=== PATIENT | male | born 1985 | race Caucasian/White ===

== ENCOUNTER 2022-03-02 00:01 | Emergency (ER) | payer SELFPAY ==
[2022-03-02 01:08] LABS: Absolute Lymphocytes (CBC) 1.9 K/uL (0.7-4.9); Hematocrit 49.6 % (39.6-49.0); Lymphocytes % 23.8 % (15.3-44.8); MCV 92.3 fL (80-100); MPV 7.1 fL (7.6-11.3); RBC Red Blood Cell Count 5.37 M/uL (4.33-5.43)
[2022-03-02 01:12] LABS: Protime INR 0.93
[2022-03-02 01:23] LABS: ALT/SGPT 33 U/L (12-78); AST/SGOT 22 U/L (15-37); Albumin 3.9 g/dL (3.4-5.0); Alkaline Phosphatase 107 U/L (45-117); BUN Blood Urea Nitrogen 8 mg/dL (7-18); Bicarbonate 27 mmol/L (21-32); Bilirubin Direct 0.1 mg/dL (0-0.2); Bilirubin Total 0.3 mg/dL (0.2-1.0); Glomerular Filtration Rate 118 ml/min (=/>90); Glucose Level 106 mg/dL (74-106); Potassium 3.4 mmol/L (3.5-5.1); Protein, Total 7.2 g/dL (6.4-8.2); Sodium Level 142 mmol/L (136-145)
--- NOTE | 2022-03-02 02:10 | ER ---
Nurse's Notes [facility] Name: Parag Bonds Age: 37 yrs Sex: Male : 1985 Arrival Date: 03/02/2022 Time: 00:05 Bed 19 Private MD: Diagnosis: Alcohol use, unspecified with intoxication;Headache Presentation: 03/02 00:05 Chief complaint: EMS states: pt was in custody for public intoxication and had tw5 complaints of headache and requested to be transported by EMS to the hospital for evaluation. pt denies headache at this time. Coronavirus screen: Client denies travel out of the [place] in the last 14 days. At this time, the client does not indicate any symptoms associated with coronavirus-19. Ebola Screen: No symptoms or risks identified at this time. Initial Sepsis Screen: Does the patient meet any 2 criteria? No. Patient's initial sepsis screen is negative. Does the patient have a suspected source of infection? No. Patient's initial sepsis screen is negative. Risk Assessment: Do you want to hurt yourself or someone else? Patient reports no desire to harm self or others. Onset of symptoms was March 02, 2022. 00:05 Method Of Arrival: EMS: [facility] tw5 00:05 Acuity: MIKAEL 3 tw5 Triage Assessment: 00:05 General: Appears in no apparent distress. comfortable, Behavior is calm, cooperative. tw5 Pain: Denies pain. EENT: No deficits noted. No signs and/or symptoms were reported regarding the EENT system. Neuro: No deficits noted. Level of Consciousness is awake, alert, obeys commands, Oriented to person, place. Cardiovascular: No deficits noted. Denies chest pain, shortness of breath, Capillary refill < 3 seconds Clubbing of nail beds is absent JVD is absent Patient's skin is warm and dry. Respiratory: No deficits noted. Airway is patent Trachea midline Respiratory effort is even, unlabored, Respiratory pattern is regular, symmetrical, Breath sounds are clear bilaterally. GI: No deficits noted. No signs and/or symptoms were reported involving the gastrointestinal system. Abdomen is flat, non-distended, Abd is soft and non tender X 4 quads. : No deficits noted. No signs and/or symptoms were reported regarding the genitourinary system. Derm: No deficits noted. No signs and/or symptoms reported regarding the dermatologic system. Skin is intact, is healthy with good turgor, Skin is dry, Skin is normal, Skin temperature is warm. Musculoskeletal: No deficits noted. No signs and/or symptoms reported regarding the musculoskeletal system. Circulation, motion, and sensation intact. Range of motion: intact in all extremities. Historical: - Allergies: 00:14 Unable to obtain; tw5 - Home Meds: 00:14 Unable to obtain [Active]; tw5 - PMHx: 00:14 Unable to Obtain; tw5 - PSHx: 00:14 Unable to Obtain; tw5 - Immunization history:: Client reports having NOT received the Covid vaccine. - Social history:: Smoking status: Patient reports the use of cigarette tobacco products, Patient uses alcohol. Screenin:09 Abuse screen: Denies threats or abuse. Denies injuries from another. Nutritional tw5 screening: No deficits noted. Tuberculosis screening: No symptoms or risk factors identified. Fall Risk None identified. Assessment: 00:09 General: see triage assessment . tw5 01:31 Reassessment: Patient appears in no apparent distress at this time. No changes from tw5 previously documented assessment. Patient and/or family updated on plan of care and expected duration. Pain level reassessed. Patient is alert, oriented x 3, equal unlabored respirations, skin warm/dry/pink. 03:37 Reassessment: Patient appears in no apparent distress at this time. No changes from lg3 previously documented assessment. pt quietly resting at this time. Vital Signs: 00:05 BP 131 / 75; Pulse 88; Resp 16; Temp 98.2(O); Pulse Ox 98% on R/A; Weight 81.65 kg (R); tw5 Height 6 ft. (182.88 cm) (R); Pain 0/10; 01:31 BP 103 / 62; Pulse 74; Resp 17 S; Pulse Ox 96% on R/A; tw5 03:40 BP 110 / 64; Pulse 71; Resp 16; Pulse Ox 97% on R/A; lg3 00:05 Body Mass Index 24.41 (81.65 kg, 182.88 cm) tw5 ED Course: 00:05 Patient arrived in ED. mw2 00:05 Shyann Mike is Primary Nurse. tw5 00:05 Arm band placed on right wrist. tw5 00:07 Triage completed. tw5 00:09 Patient has correct armband on for positive identification. Bed in low position. Call tw5 light in reach. Side rails up X2. Client placed on continuous cardiac and pulse oximetry monitoring. NIBP monitoring applied. Door closed. Noise minimized. Warm blanket given. 00:11 Neto Sanders MD is Attending Physician. jorge 00:13 Neto Sharma PA is PHCP. cp 00:27 Acetaminophen Sent. tw: Basic Metabolic Panel Sent. : CBC with Diff Sent. : ETOH Level Sent. : Hepatic Function Sent. : PT-INR Sent. : Ptt, Activated Sent. : Salicylate Sent. : Inserted saline lock: 18 gauge in right antecubital area, using aseptic technique. tw Blood collected. 01:06 CT Head C Spine In Process Unspecified. EDMS 03:39 No provider procedures requiring assistance completed. IV discontinued, intact, lg3 bleeding controlled, No redness/swelling at site. Pressure dressing applied. Administered Medications: 02:20 Drug: Potassium Effervescent Tablet 25 mEq Route: PO; lg3 02:20 Follow up: Response: No adverse reaction lg3 Medication: 03:40 VIS not applicable for this client. lg3 Outcome: 02:09 Discharge ordered by . cp 03:39 Discharged to home ambulatory. lg3 03:39 Condition: stable 03:39 Discharge instructions given to patient, Instructed on discharge instructions, follow up and referral plans. Demonstrated understanding of instructions, follow-up care. 03:41 Patient left the ED. lg3 Signatures: Dispatcher [employer] EDVT Neto Sanders MD MD cha Page, Corey, PA PA cp [place], MyKena mw2 Clara Velazquez, CHE RN lg3 Shyann Mike tw5
--- NOTE | 2022-03-02 02:10 | EDPHYS ---
Physician Documentation [facility] Name: Parag Bonds Age: 37 yrs Sex: Male : 1985 Arrival Date: 03/02/2022 Time: 00:05 Bed 19 Private MD: ED Physician Neto Sanders HPI: 03/02 00:20 This 37 yrs old Male presents to ER via EMS with complaints of Right Side Headache. cp 00:20 The patient complains of pain to the right frontal area, right side of the back of head cp and right temporal area. The patient describes the headache as aching. Onset: The symptoms/episode began/occurred today. 00:20 Associated signs and symptoms: Pertinent negatives: altered mental status, neck cp stiffness, vomiting, weakness. 00:20 Severity of symptoms: in the emergency department the pain is unchanged, despite EMS cp interventions. Historical: - Allergies: 00:14 Unable to obtain; tw5 - Home Meds: 00:14 Unable to obtain [Active]; tw5 - PMHx: 00:14 Unable to Obtain; tw5 - PSHx: 00:14 Unable to Obtain; tw5 - Immunization history:: Client reports having NOT received the Covid vaccine. - Social history:: Smoking status: Patient reports the use of cigarette tobacco products, Patient uses alcohol. ROS: 00:25 Constitutional: Negative for body aches, chills, fever, poor PO intake. cp 00:25 Eyes: Negative for injury, pain, redness, and discharge. cp 00:25 ENT: Negative for drainage from ear(s), ear pain, sore throat, difficulty swallowing, difficulty handling secretions. 00:25 Cardiovascular: Negative for chest pain, palpitations. 00:25 Respiratory: Negative for cough, shortness of breath, wheezing. 00:25 Abdomen/GI: Negative for abdominal pain, nausea, vomiting, and diarrhea. 00:25 Back: Negative for pain at rest, pain with movement. 00:25 Neuro: Positive for headache, Negative for altered mental status, numbness, weakness. 00:25 All other systems are negative. Exam: 00:30 Constitutional: The patient appears in no acute distress, alert, awake, cp non-diaphoretic, non-toxic, well developed, well nourished. 00:30 Head/Face: Normocephalic, atraumatic. cp 00:30 Eyes: Periorbital structures: appear normal, Pupils: equal, round, and reactive to light and accomodation, Extraocular movements: intact throughout, Conjunctiva: normal, no exudate, no injection, Sclera: no appreciated abnormality, Lids and lashes: appear normal, bilaterally. 00:30 ENT: External ear(s): are unremarkable, Nose: is normal, Mouth: Lips: moist, Oral mucosa: pink and intact, moist, Posterior pharynx: Airway: no evidence of obstruction, patent. 00:30 Neck: ROM/movement: is normal, is supple, without pain, no range of motions limitations. 00:30 Chest/axilla: Inspection: normal, Palpation: is normal, no crepitus, no tenderness. 00:30 Cardiovascular: Rate: normal, Rhythm: regular. 00:30 Respiratory: the patient does not display signs of respiratory distress, Respirations: normal, no use of accessory muscles, no retractions, labored breathing, is not present, Breath sounds: are clear throughout, no decreased breath sounds, no stridor, no wheezing. 00:30 Abdomen/GI: Inspection: abdomen appears normal, Bowel sounds: active, all quadrants, Palpation: abdomen is soft and non-tender, in all quadrants. 00:30 Back: pain, is absent, ROM is normal. 00:30 Neuro: Orientation: to person, place \T\ time. Mentation: able to follow commands, Motor: moves all fours, strength is normal, Sensation: no obvious gross deficits. 00:45 ECG was reviewed by the Attending Physician. cp Vital Signs: 00:05 BP 131 / 75; Pulse 88; Resp 16; Temp 98.2(O); Pulse Ox 98% on R/A; Weight 81.65 kg (R); tw5 Height 6 ft. (182.88 cm) (R); Pain 0/10; 01:31 BP 103 / 62; Pulse 74; Resp 17 S; Pulse Ox 96% on R/A; tw5 03:40 BP 110 / 64; Pulse 71; Resp 16; Pulse Ox 97% on R/A; lg3 00:05 Body Mass Index 24.41 (81.65 kg, 182.88 cm) tw5 MDM: 00:11 Patient medically screened. [facility] 02:05 Data reviewed: vital signs, nurses notes, lab test result(s), EKG, radiologic studies, cp CT scan. 02:05 Differential diagnosis: intracerebral hemorrhage, subarachnoid bleed, trauma. Test cp interpretation: by ED physician or midlevel provider: ECG. Counseling: I had a detailed discussion with the patient and/or guardian regarding: the historical points, exam findings, and any diagnostic results supporting the discharge/admit diagnosis, lab results, radiology results, to return to the emergency department if symptoms worsen or persist or if there are any questions or concerns that arise at home. 03/02 00:13 Order name: Acetaminophen; Complete Time: :46 cp 03/02 01:46 Interpretation: Reviewed. 03/02 00:13 Order name: Basic Metabolic Panel; Complete Time: 46 cp 03/02 01:46 Interpretation: Normal except: K 3.4. cp 03/02 00:13 Order name: CBC with Diff; Complete Time: :46 cp 03/02 01:47 Interpretation: Normal except: HCT 49.6; MPV 7.1. cp 03/02 00:13 Order name: ETOH Level; Complete Time: :46 cp 03/02 01:47 Interpretation: Abnormal: ETOH 217. cp 03/02 00:13 Order name: Hepatic Function; Complete Time: :46 cp 03/02 01:47 Interpretation: Reviewed. 03/02 00:13 Order name: PT-INR; Complete Time: :46 cp 03/02 00:13 Order name: CT Head C Spine cp 03/02 00:13 Order name: Ptt, Activated; Complete Time: :46 cp 03/02 00:13 Order name: Salicylate; Complete Time: :46 cp 03/02 00:13 Order name: EKG; Complete Time: 00:14 cp 03/02 00:13 Order name: EKG - Nurse/Tech; Complete Time: 00:27 cp 03/02 00:13 Order name: IV Saline Lock; Complete Time: 00:27 cp 03/02 00:13 Order name: Labs collected and sent; Complete Time: 00:27 cp 03/02 00:13 Order name: Suicide Screening ([place]); Complete Time: 00:30 cp EC:45 Rate is 66 beats/min. Rhythm is regular. ME interval is normal. QRS interval is normal. cp QT interval is normal. T waves are Inverted in lead aVR. Interpreted by me. Reviewed by me. Administered Medications: 02:20 Drug: Potassium Effervescent Tablet 25 mEq Route: PO; lg3 02:20 Follow up: Response: No adverse reaction lg3 Disposition Summary: 03/02/22 02:09 Discharge Ordered Location: Home cp Problem: new cp Symptoms: have improved cp Condition: Stable cp Diagnosis - Alcohol use, unspecified with intoxication cp - Headache cp Followup: cp - With: Private Physician - When: 2 - 3 days - Reason: Recheck today's complaints Discharge Instructions: - Discharge Summary Sheet cp - Alcohol Intoxication cp - General Headache Without Cause cp Forms: - Medication Reconciliation Form cp - Thank You Letter cp - Antibiotic Education cp - Prescription Opioid Use cp Signatures: Dispatcher [employer] EDNeto Noel MD MD cha Page, Corey, PA PA cp Clara Velazquez, RN RN lg3 Shyann Mike tw5 Corrections: (The following items were deleted from the chart) 01:49 01:48 This 37 yrs old Male presents to ER via EMS with complaints of Right Side cp Headache. cp
[2022-03-02 07:07] VITALS: TEMP 98.2
[2022-03-02 07:22] VITALS: BP 110/64; O2SAT 97
--- NOTE | 2022-03-02 12:52 | RAD REPORT ---
EXAM DESCRIPTION: CT - [id number] - 03/02/2022 6:45 am CLINICAL HISTORY: The patient is 37 years old and is Male; headache TECHNIQUE: Axial computed tomography images of the head/brain and cervical spine without intravenous contrast. Sagittal and coronal reformatted images were created and reviewed. This CT exam was pe rformed using one or more of the following dose reduction techniques: automated exposure control, a djustment of the mA and/or kV according to patient size, and/or use of iterative reconstruction techn ique. COMPARISON: No relevant prior studies available. FINDINGS: BRAIN: Unremarkable. No hemorrhage. No significant white matter disease. No edema. VENTRICLES: Unremarkable. No ventriculomegaly. SKULL: No acute fracture. SINUSES: Unremarkable as visualized. No acute sinusitis. MASTOID AIR CELLS: Unremarkable as visualized. No mastoid effusion. VERTEBRAE: The vertebral body heights and alignment are maintained. No acute fracture. DISCS/SPINAL CANAL/NEURAL FORAMINA: Minimal intervertebral disc space narrowing with anterior osteo phyte formation at C5-C6 is present. The remaining intervertebral disc spaces are maintained. No spin al canal stenosis. SOFT TISSUES: The soft tissues are normal. LUNG APICES: Unremarkable as visualized. IMPRESSION: 1. No acute intracranial findings. 2. No fracture or malalignment of the cervical spine. Electronically signed by: Denise Lamar MD 03/02/2022 1:25 AM CDT Due to temporary technical issues with the PACS/Fluency reporting system, reports are being signed by the in house radiologists without review as a courtesy to insure prompt reporting. The interpreting radiologist is fully responsible for the content of the report.
--- NOTE | 2022-03-02 14:31 | EKG ---
Test Date: 2022-03-02 Test Time: 00:39:25 Box Office Attendant: WM MEASUREMENT RESULTS: Intervals: Rate: 66 KS: 132 QRSD: 92 QT: 396 QTc: 415 [place]: P: KS: 132 QRS: 60 T: 50 INTERPRETIVE STATEMENTS: Normal sinus rhythm Septal infarct, age undetermined Abnormal ECG No previous ECG available for comparison Electronically Signed On 03-02-22 14:29:29 CDT by Vinh Chauhan
== END 2022-03-02 03:41 | disposition home or self-care (01) ==
LOC: ER 00:01
DX: R51.9 Headache, unspecified (principal); F10.929 Alcohol use, unspecified with intoxication, unspecified; Z72.0 Tobacco use
CPT/HCPCS: 36415; 70450; 72125; 80048; 80076; 80320; 80329; 85025; 85610; 85730; 93005; 99284